=== PATIENT | female | born 1960 | race African-American/Black ===

== ENCOUNTER 2018-01-20 08:15 | Inpatient (IN) | payer OTHER ==
[~2018-01-20] VITALS: Ht 167.6 cm; Wt 98.0 kg
[2018-01-20 10:26] LABS: EOSINOPHILS % 2.3 % (0.0-5.0); HEMATOCRIT. 36.8 % (36.0-48.0); MEAN CORPUSCULAR HEMOGLOBIN 26.9 pg (28.0-32.0); MEAN CORPUSCULAR VOLUME 82.3 fL (81.0-99.0); MEAN PLATELET VOLUME 9.4 fl (7.4-10.4); MONOCYTES % 7.7 % (2.0-8.0); PLATELET 268 x1000/uL (130-400); RED BLOOD CELL COUNT 4.47 mill/uL (4.2-5.4); RED CELL DISTRIBUTION WIDTH 14.6 % (11.6-14.6)
[2018-01-20 10:28] LABS: CHLORIDE 99 mEq/L (98-107)
[2018-01-20 10:32] LABS: ETHANOL BLOOD < 10 mg/dL
[2018-01-20 10:33] LABS: INR 1.1
[2018-01-20 10:36] LABS: LDL CHOLESTEROL 30 mg/dL (5-100)
[2018-01-20 10:41] LABS: CLARITY URINE CLEAR (CLEAR); COLOR URINE YELLOW (YELLOW); KETONES URINE NEGATIVE (NEGATIVE); LEUKOCYTE ESTERASE URINE NEGATIVE (NEGATIVE); NITRITE URINE NEGATIVE (NEGATIVE); OCCULT BLOOD URINE NEGATIVE (NEGATIVE); PH URINE 6.5 (4.5-8.0); PROTEIN URINE NEGATIVE (NEGATIVE); SPECIFIC GRAVITY URINE 1.009 (1.005-1.030); UROBILINOGEN URINE 0.2 E.U./dL (0.2-1.0)
[2018-01-20 10:53] LABS: *AMPHETAMINES SCREEN URINE NEGATIVE (NEGATIVE); *BARBITURATES SCREEN URINE NEGATIVE (NEGATIVE)
[2018-01-20 10:55] LABS: *BENZODIAZEPINES SCREEN URINE NEGATIVE (NEGATIVE); *COCAINE SCREEN URINE NEGATIVE (NEGATIVE); METHADONE URINE SCREEN NEGATIVE (NEGATIVE); OPIATES URINE SCREEN NEGATIVE (NEGATIVE)
[2018-01-20 10:56] LABS: CANNABINOID URINE SCREEN NEGATIVE (NEGATIVE); PHENCYCLIDINE URINE SCREEN NEGATIVE (NEGATIVE)
[2018-01-20 12:00] VITALS: BP 136/80
[2018-01-20 12:46] VITALS: BP 134/80
[2018-01-20] MEDS ORDERED: METF500T6 PO (13:18)
[2018-01-20] MEDS ORDERED: HYDR25TA MT (13:18)
[2018-01-20] MEDS ORDERED: ATOR10TA69 PO (13:18)
[2018-01-20 16:00] VITALS: BP 126/77
[2018-01-20 16:19] LABS: CREATINE KINASE 131 IU/L (26-192)
[2018-01-20 16:21] LABS: CREATINE KINASE MB FRACTION 0.7 ng/mL (0.5-3.6)
[2018-01-20] MEDS ORDERED: POTASSIUM CHLORIDE 20MEQ TABLET SR PO SCH (19:45)
[2018-01-20 20:00] VITALS: BP 120/70
[2018-01-20] MEDS: INSULIN LISPRO 100 UNITS/ML SUBCUT SCH (21:00)
[2018-01-20] MEDS ORDERED: DEXTROSE 50% WATER 50ML SYRINGE IV PRN (21:00)
[2018-01-20] MEDS ORDERED: ATORVASTATIN CALCIUM 10MG TABLET PO SCH (21:00)
[2018-01-20] MEDS: BLOOD SUGAR DIAGNOSTIC STRIP TEST SCH (21:28)
[2018-01-21] VITALS: BP 110/80
[2018-01-21 00:04] LABS: CREATINE KINASE 134 IU/L (26-192)
[2018-01-21 00:06] LABS: CREATINE KINASE MB FRACTION 0.6 ng/mL (0.5-3.6)
[2018-01-21] MEDS ORDERED: LOSA25TA12 MT (02:22)
[2018-01-21] MEDS ORDERED: IRON (02:22)
[2018-01-21 04:00] VITALS: BP 120/82
[2018-01-21] MEDS: BLOOD SUGAR DIAGNOSTIC STRIP TEST SCH ×2 (06:41→11:45)
[2018-01-21] MEDS: INSULIN LISPRO 100 UNITS/ML SUBCUT SCH ×2 (06:45→12:15)
[2018-01-21 07:00] LABS: EOSINOPHILS % 3.1 % (0.0-5.0); HEMATOCRIT. 38.1 % (36.0-48.0); HEMOGLOBIN. 12.6 g/dL (12.0-16.0); LYMPHOCYTES % 27.9 % (20.0-50.0); MEAN CORPUSCULAR HEMOGLOBIN 27.3 pg (28.0-32.0); MEAN CORPUSCULAR VOLUME 82.5 fL (81.0-99.0); MEAN PLATELET VOLUME 9.7 fl (7.4-10.4); MONOCYTES % 7.4 % (2.0-8.0); NEUTROPHILS % 60.6 % (40.0-76.0); PLATELET 261 x1000/uL (130-400); RED BLOOD CELL COUNT 4.62 mill/uL (4.2-5.4); RED CELL DISTRIBUTION WIDTH 14.7 % (11.6-14.6)
[2018-01-21 07:09] LABS: CHLORIDE 99 mEq/L (98-107)
[2018-01-21] MEDS ORDERED: METFORMIN HCL 500MG TABLET PO SCH (07:15)
[2018-01-21 07:57] VITALS: BP 132/71
[2018-01-21 08:01] LABS: HDL CHOLESTEROL 59 mg/dL (40-59)
[2018-01-21 08:03] LABS: LDL CHOLESTEROL 30 mg/dL (5-100)
[2018-01-21] MEDS ORDERED: HYDROCHLOROTHIAZIDE 25MG TABLET PO SCH (09:00)
[2018-01-21] MEDS ORDERED: POTASSIUM CHLORIDE 20MEQ TABLET SR PO SCH (11:30)
[2018-01-21 12:01] VITALS: BP 120/76
[2018-01-21 12:07] VITALS: BP 120/76
== END 2018-01-21 13:55 | disposition home or self-care (01) | DRG 69 ==
LOC: ER 08:15 → 5WST 10:39 → EDBEDREQ 10:40 → ENRESERV 11:10
PROVIDERS: ADMIT Hospitalist; ATTEND Hospitalist
DX: G45.9 Transient cerebral ischemic attack, unspecified (principal); I10 Essential (primary) hypertension; E11.9 Type 2 diabetes mellitus without complications; E87.6 Hypokalemia; Z79.899 Other long term (current) drug therapy; Z88.8 Allergy status to other drugs, medicaments and biological substances
CPT/HCPCS: 36415; 70450; 70551; 71045; 80053; 80061; 80305; 81003; 82550; 82553; 82962; 83721; 83735; 84484; 85025; 85610; 93005; 93306; 93880; 93970; 99285; G0482